=== PATIENT | female | born 1955 | race Caucasian/White ===

== ENCOUNTER 2020-12-13 11:57 | Outpatient (CLI) | payer MEDICARE, OTHER ==
[~2020-12-13] VITALS: Ht 162.6 cm; Wt 70.3 kg
[2020-12-13] MEDS ORDERED: PANT40TA52 PO (12:41)
[2020-12-13] MEDS ORDERED: METH-288 PO (12:41)
[2020-12-13] MEDS ORDERED: DOXY100T2 PO (12:41)
[2020-12-13] MEDS ORDERED: MILN50TA PO (12:41)
[2020-12-13] MEDS ORDERED: MORP15TA PO (12:41)
[2020-12-13] MEDS ORDERED: METH8TAB PO (12:41)
[2020-12-13] MEDS ORDERED: FLUO20CA42 PO (12:41)
[2020-12-13] MEDS ORDERED: PREG75CA PO (12:41)
[2020-12-13] MEDS ORDERED: MORP-68 PO (12:41)
[2020-12-13] MEDS ORDERED: CALC-250 PO (12:41)
[2020-12-13] MEDS ORDERED: LATA7.5D OU (12:41)
== END 2020-12-13 12:52 ==
LOC: EDBD 11:57 → PREOP 11:57
PROVIDERS: ATTEND Orthopaedic Surgery
DX: Z01.818 Encounter for other preprocedural examination (principal)

== ENCOUNTER → 2020-12-13 | Outpatient (CLI) | payer MEDICARE, OTHER ==
[~2020-12-13] MED LIST: CALC-250 PO; DOXY100T2 PO; DOXY100T31 PO; FLUO20CA42 PO; LATA7.5D OU; LORA10TA72 PO; METH-288 PO; METH4TAB11 PO; METH8TAB PO; MILN50TA PO; MORP-68 PO; MORP15TA PO; PANT40TA52 PO; PREG75CA PO
== END ==
LOC: EDBD → ORTHO 08:50
PROVIDERS: ATTEND Orthopaedic Surgery
DX: S42.401A Unspecified fracture of lower end of right humerus, initial encounter for closed fracture (principal); X58.XXXA Exposure to other specified factors, initial encounter
CPT/HCPCS: 29125; G0463

== ENCOUNTER 2020-12-17 06:29 | Inpatient (IN) | payer MEDICARE, OTHER ==
[~2020-12-17] VITALS: Ht 162.6 cm; Wt 74.4 kg
[2020-12-17] VITALS (10 sets, daily range): BP systolic 126–171; BP diastolic 74–130
[~2020-12-17 06:29] MED LIST changes: -DOXY100T31 PO; -LORA10TA72 PO; -METH4TAB11 PO
[2020-12-17] MEDS ORDERED: LACTATED RINGERS 1,000 ML IV PRN (06:45)
[2020-12-17] MEDS ORDERED: ceFAZolin INJECTION 1,000 MG in WATER (STERILE) FOR INJECTION 10 ML IV ONE (06:45)
[2020-12-17] MEDS ORDERED: LIDOCAINE/EPI 1%-1:200,000 (XYLOCAINE) 30 ML VIAL ONE (06:59)
[2020-12-17] MEDS ORDERED: BUPIVACAINE 0.5% 30 ML (SENSORCAINE) VIAL ONE (06:59)
[2020-12-17] MEDS: ceFAZolin INJECTION 1,000 MG in WATER (STERILE) FOR INJECTION 10 ML IV ONE ×2 (07:18→08:12)
[2020-12-17] MEDS: LACTATED RINGERS 1,000 ML IV PRN ×4 (07:19→12:29)
[2020-12-17] MEDS ORDERED: MIDAZOLAM 2 MG/2 ML (VERSED) VIAL ONE (07:29)
[2020-12-17] MEDS ORDERED: fentaNYL INJ 100 MCG/2 ML AMP ONE ×2 (07:29→10:17)
[2020-12-17] MEDS ORDERED: FAMOTIDINE 20MG/2ML IV (PEPCID) ONE (07:43)
[2020-12-17] MEDS ORDERED: proPOfol 200 MG/20 ML (DIPRIVAN) VIAL IV ONE (09:00)
[2020-12-17] MEDS ORDERED: ONDANSETRON 4 MG/2 ML (SDV) Z0FRAN ONE ×2 (09:00→12:15)
[2020-12-17] MEDS ORDERED: LIDOCAINE PF 2% 5 ML (XYLOCAINE) VIAL ONE (09:00)
[2020-12-17] MEDS ORDERED: ROCURONIUM 10 MG/ML 5 ML SYRINGE IV ONE ×2 (09:00→09:01)
[2020-12-17] MEDS ORDERED: SEVOFLURANE (ULTANE) 15 ML INHAL SOLN ONE ×2 (10:59→11:43)
[2020-12-17] MEDS ORDERED: SUGAMMADEX 500 MG/5 ML VIAL (BRIDION) IV ONE (11:23)
[2020-12-17] MEDS ORDERED: HYDROCORTISONE 100 MG/2 ML (Solu-CORTEF) VIAL ONE (11:27)
--- NOTE | 2020-12-17 11:47 | Operative Report - Ortho ---
Operative Report Surgeon (s)/Senior Business Development Analyst (s) Surgeon JACINTO DAILEY MD Senior Business Development Analyst n/a Pre-Operative Diagnosis right distal humerus fx Post-Operative Diagnosis same Operative Report Date of Procedure: Dec 17, 2020 Name of Procedure Performed: Open reduction and internal fixation of right supracondylar humerus fracture without intercondylar extension Description & Findings After obtaining informed consent and marking the patient in the preoperative holding area, the patient was administered IV antibiotics and taken to the operating room. General anesthesia was induced and the patient was placed in prone positioning. Surgical timeout was taken. The right upper extremity was prepped and draped in the usual sterile fashion. A posterior incision was made. A triceps-splitting approach was utilized. Fracture site was irrigated, curretted, and prepared. Initially attempts were made to reduce to a posterolateral anatomic plate however the plate was too bulky distally. A broad reconstruction plate was selected and a slight bend was placed in the plate for the distal portion of the humerus. It was placed in a lateral position. The fracture was reduced initially to the plate on the lateral image of the C-arm and 2 provisional K-wires were placed from posterior to anterior. A nonlocking 3.5 mm screw was placed distally to the fracture site and then another one proximally. 2 locking 3.5 mm screws were then placed distally followed by proximally for a total of 6 screws in the lateral plate. The AP and lateral images on the C-arm demonstrated appropriate reduction. It was decided to add an additional posterior plate for further stability. A reconstruction plate was selected and a very slight bend was placed. A nonlocking 2.7 mm screw was placed proximally followed by another distally. A locking 2.7 mm screw was then placed proximally and distally for a total of 4 screws in the posterior plate. Final C-arm images were obtained and demonstrated maintained reduction and appropriate hardware position. The surgical site was copiously irrigated with saline. Demineralized bone matrix was packed around the fracture site. The triceps was repaired with a running 0 Vicryl suture. Subcutaneous layer was repaired with 3-0 Vicryl suture. Skin was repaired with michael. Arm was dressed with xeroform, 4x4s, ABD, and webril. A posterior splint was placed and secured with JESSICA wrap. Patient tolerated the procedure well and was stable to the recovery room. Anesthesia Type General Estimated Blood Loss 150 cc Specimen(s) collected/removed None JACINTO DAILEY MD Dec 17, 2020 11:47
[2020-12-17] MEDS ORDERED: HYDROmorphone 2 MG/ML VIAL (DILAUDID) ONE (11:56)
[2020-12-17] MEDS ORDERED: ONDANSETRON 4 MG/2 ML (SDV) Z0FRAN IV PRN (12:00)
[2020-12-17] MEDS ORDERED: fentaNYL INJ 100 MCG/2 ML AMP IVP ONE (12:00)
[2020-12-17] MEDS ORDERED: HYDROmorphone 2 MG/ML VIAL (DILAUDID) IV ONE (12:00)
[2020-12-17] MEDS ORDERED: morphine INJ 10 MG/ML 1ML (SYR OR VIAL) IVP ONE (12:00)
[2020-12-17] MEDS ORDERED: METOCLOPRAMIDE INJ 10 MG/2 ML (REGLAN) IV PRN (12:00)
[2020-12-17] MEDS ORDERED: diphenhydrAMINE 50 MG/ML INJ (BENADRYL) IV PRN (12:00)
[2020-12-17] MEDS ORDERED: NALOXONE 0.4 MG/ML 1 ML (NARCAN) VIAL IV PRN ×2 (12:00)
[2020-12-17] MEDS ORDERED: ONDANSETRON 4 MG/2 ML (SDV) Z0FRAN IVP PRN (12:00)
--- NOTE | 2020-12-17 13:07 | Anesthesia-General Post-Op ---
General Patient Condition Mental Status/LOC: Same as Preop Cardiovascular: Satisfactory Nausea/Vomiting: Absent Respiratory: Satisfactory Pain: Controlled Complications: Absent Post Op Complications Complications None Follow Up Care/Instructions Patient Instructions None needed. Anesthesia/Patient Condition Patient Condition Patient is doing well, no complaints, stable vital signs, no apparent adverse anesthesia problems. No complications reported per nursing. OZ DAVENPORT CRNA Dec 17, 2020 13:07
[2020-12-17] MEDS: HYDROmorphone PF INJECTION 10 MG in NS (IVPB) 50 ML IV SCH (13:34)
--- NOTE | 2020-12-17 13:35 | Diagnostic Imaging Report ---
INDICATION: Fluoroscopy for right humerus ORIF. Fluoroscopy was provided in the OR for right humerus ORIF. 34 seconds of fluoroscopic time was utilized. 2 images demonstrate plates and screws transfixing distal humerus fracture. IMPRESSION: Fluoroscopy during right humerus ORIF. Dictated by: Dictated on workstation # [id number]
[2020-12-17] MEDS: NS IV 1000 ML 1,000 ML IV SCH (13:45)
[2020-12-17] MEDS ORDERED: METH4TAB11 PO (14:10)
[2020-12-17] MEDS ORDERED: LORA10TA72 PO (14:10)
[2020-12-17] MEDS ORDERED: DOXY100T31 PO (14:10)
--- NOTE | 2020-12-17 15:45 | Physical Therapy Evaluation ---
PT Evaluation-General Medical Diagnosis Admission Date Medical Diagnosis: right distal humerus fx Onset Date: Dec 16, 2020 Therapy Diagnosis Therapy Diagnosis: Gait deficit, strength deficit Precautions Precautions/Isolations: Fall Prevention, Standard Precautions Weight Bear Status Right Lower Extremity: Right Full Weight Bearing Left Lower Extremity: Left Full Weight Bearing NWB R UE Referral Physician: Dr. Farr Reason for Referral: Evaluation/Treatment Medical History Additional Medical History MS Social History Home: Single Level Current Living Status: son Entry Into Home: Ramp Prior Prior Level of Function SCALE: Activities may be completed with or without assistive devices. 0-Rzajvxqwgm-jbprvus completes the activity by him/herself with no assistance from a helper. 5-Set-up or Clean-up Assistance-helper sets up or cleans up; patient completes activity. [place] assists only prior to or following the activity. 4-Supervision or Touching Assistance-helper provides verbal cues and/or touching/steadying and/or contact guard assistance as patient completes activity. Assistance may be provided throughout the activity or intermittently. 3-Partial/Moderate Assistance-helper does LESS THAN HALF the effort. [place] lifts, holds or supports trunk or limbs, but provides less than half the effort. 2-Substantial/Maximal Assistance-helper does MORE THAN HALF the effort. [place] lifts or holds trunk or limbs and provides more than half the effort. 6-Dpquyjfco-qzxnno does ALL the effort. Patient does none of the effort to complete the activity. Or, the assistance of 2 or more helpers is required for the patient to complete the activity. If activity was not attempted, code reason: 7-Patient Refused. 9-Not Applicable-not attempted and the patient did not perform the activity before the current illness, exacerbation or injury. 10-Not Attempted due to Environmental Limitations-(lack of equipment, weather restraints, etc.). 88-Not Attempted due to Medical Conditions or Safety Concerns. Bed Mobility: 6 Transfers (B,C,W/C): 6 Gait: 9 Stairs: 9 Indoor Mobility (Ambulation): Dependent Stairs: Dependent Prior Devices Use: Manual wheelchair, Motorized wheelchair Patient has MS and other than standing to transfer, is essentially w/c bound PT Evaluation-Current Subjective Patient reports pain in right elbow is currently 10/10, nurse in the room administering medications. Patient reports she has MS and has not ambulated in over a year. She is able to perform all ADLs with mod I at home, and she is able to stand to transfer to chair, w/c Objective Patient Orientation: Person, Place, Time, Situation Attachments: IV ROM/Strength ROM Upper Extremities Right UE limited due to recent surgery ROM Lower Extremities WFLs with PROM Strength Lower Extremities Right LE 3+/5 in all hip, knee and ankle planes; Left LE 3-/5 in all hip, knee, and ankle planes. Neuromuscular (Tone, Coordination, Reflexes) Tone decreased in BLEs. Coordination poor in BLEs. Sensory Sensation Right Lower Extremit: Intact Sensation Left Lower Extremity: Impaired Sensation Lower Extremities Left foot no sensation to light touch. Transfers Roll Left to Right (QC): 2 Sit to Lying (QC): 2 Lying to Sitting/Side of Bed(Q: 2 Sit to Stand (QC): 3 Chair/Dix-vl-Pkvfr Xfer(QC): 3 Gait Mode of Locomotion: Wheelchair Anticipated Mode of Locomotion: Wheelchair Wheelchair Training Does the Pt Use a Wheelchair?: Yes Distance: N/A due to surgery Type of Wheelchair: Manual Balance Sitting Static: Fair Sitting Dynamic: Fair Standing Static: Poor Standing Dynamic: Poor Assessment/Needs Patient lying supine in bed upon PT arrival, agreeable to treatment. Patient performs all bed mobility with max A and transfers with mod A. Patient is able to transfer to the chair with use of left UE only, with mod A and verbal cues. She demonstrates difficulty controlling descent into the chair. Patient in chair post treatment with all needs met, nursing notified, call light in reach, daughter and nurse in the room. Rehab Potential: Fair Equipment Needs None at this time as patient already has all needed assitive devices at home. PT Short Term Goals Short Term Goals Time Frame: Dec 24, 2020 Roll Left & Right: 4 Sit to lyin Lying to sitting on side of be: 4 Sit to stand: 4 Chair/hgx-yy-qhjxi transfer: 4 PT Perioperative Tech Goals Chcf Goals PT Chcf Goals Time Frame: Dec 31, 2020 Roll Left & Right (QC): 5 Sit to Lying (QC): 5 Lying-Sitting on Side/Bed(QC): 5 Sit to Stand (QC): 5 Chair/Wwb-ik-Xhtjy Xfer(QC): 5 Toilet Transfer (QC): 5 PT Plan Problem List Problem List: Activity Tolerance, Functional Strength, Safety, Balance, Gait, Transfer, Bed Mobility, ROM Treatment/Plan Treatment Plan: Continue Plan of Care Treatment Plan: Bed Mobility, Education, Functional Activity Doris, Functional Strength, Safety, Therapeutic Exercise, Transfers Treatment Duration: Jan 30, 2021 Frequency: 6 times per week Estimated Hrs Per Day: .25 hour per day Safety Risks/Education Patient Education: Transfer Techniques, Reviewed Precautions Teaching Recipient: Patient, Family Teaching Methods: Demonstration, Discussion Response to Teaching: Verbalize Understanding, Return Demonstration Time/GCodes Time In: 1515 Time Out: 1545 Total Billed Treatment Time: 30 Total Billed Treatment Visit, OVIDIO Abraham JOHN A PT Dec 17, 2020 15:45
[2020-12-17] MEDS: PREGABALIN 75 MG (LYRICA) CAP PO SCH (20:29)
[2020-12-17] MEDS: morphine ER 15 MG (MS CONTIN) TAB PO SCH (20:29)
[2020-12-17] MEDS: DOCUSATE SODIUM 100 MG (COLACE) CAP PO SCH (20:29)
[2020-12-17] MEDS: LATANOPROST 0.005% (XALATAN) OPHTH SOLN 2.5 ML OU SCH (20:30)
[2020-12-17] MEDS: DOXYCYCLINE 100 MG (VIBRAMYCIN) TABLET PO SCH (20:30)
[2020-12-17] MEDS ORDERED: MILNACIPRAN HCL 50 MG PO SCH (21:00)
[2020-12-17] MEDS ORDERED: NON-FORMULARY MEDICATION 1 EA EA (Latanoprost/Pf (Latanoprost 0.005% Eye Drop) 1 DROP) OU SCH (21:00)
[2020-12-18 00:15] VITALS: BP 108/59
[2020-12-18 03:30] VITALS: BP 129/61
[2020-12-18 08:00] VITALS: BP 129/71
[2020-12-18] MEDS: VITAMIN D3 125 MCG (5,000 UNITS) CAPSULE PO SCH (08:18)
[2020-12-18] MEDS: DOCUSATE SODIUM 100 MG (COLACE) CAP PO SCH ×2 (08:19→20:21)
[2020-12-18] MEDS: SENNA W/DOCUSATE (SENOKOT S) TABLET PO SCH (08:19)
[2020-12-18] MEDS: FLUoxetine HCL 20 MG (PROzac) CAP PO SCH (08:19)
[2020-12-18] MEDS: morphine ER 15 MG (MS CONTIN) TAB PO SCH ×2 (08:19→20:21)
[2020-12-18] MEDS: METHYLPHENIDATE 5 MG (RITALIN) TAB PO SCH (08:19)
[2020-12-18] MEDS: PREGABALIN 75 MG (LYRICA) CAP PO SCH ×2 (08:19→20:21)
[2020-12-18] MEDS: PANTOPRAZOLE 40 MG (PROTONIX) TAB PO SCH (08:19)
--- NOTE | 2020-12-18 08:25 | Progress Note - Ortho ---
Progress Note Subjective Date of Exam 12/18/20 Chief Complaint Right Arm Pain HPI/Events since last exam POD #1 ORIF of R Distal Humerus Fracture Has ongoing difficulty with pain control. Has been out of bed to chair. Using sling. Review of Systems n/a Allergies: Coded Allergies: No Known Drug Allergies (Unverified , 12/13/20) Home Meds Reported Medications Loratadine (Claritin) 10 Mg Tab.rapdis, 10 MG PO DAILY PRN for ALLERGIES, TAB 12/17/20 Methylprednisolone (Methylprednisolone Dose Pack) 4 Mg Tablet, 6 MG PO HS, TAB TAKES 1 (4MG) TABLETS 12/17/20 Doxycycline Monohydrate (Doxycycline Monohydrate) 100 Mg Tablet, 100 MG PO HS, TAB 12/17/20 Cholecalciferol (Vitamin D3) (Vitamin D3) 125 Mcg Tablet, 125 MCG PO DAILY, TAB 12/13/20 Milnacipran HCl (Savella) 50 Mg Tablet, 50 MG PO HS, TAB 12/13/20 Fluoxetine HCl (Prozac) 20 Mg Capsule, 20 MG PO DAILY, CAP 12/13/20 Pantoprazole Sodium (Pantoprazole Sodium) 40 Mg Tablet.dr, 40 MG PO DAILY, TAB 12/13/20 Morphine Sulfate (Morphine Sulfate ER) 15 Mg Tablet.er, 15 MG PO BID, TAB 12/13/20 Morphine Sulfate (Morphine Sulfate IR Tablet) 15 Mg Tablet, 15 MG PO Q4H PRN for PAIN-MODERATE (5-7), TAB 12/13/20 Methylphenidate HCl (Methylphenidate HCl) 10 Mg Tablet, 5 MG PO DAILY, TAB TAKES (10MG) TABLET 12/13/20 Pregabalin (Lyrica) 75 Mg Capsule, 75 MG PO BID, CAP 12/13/20 Latanoprost/Pf (Latanoprost 0.005% Eye Drop) 7.5 Ml Drops, 1 DROP OU HS, DROPS 12/13/20 Discontinued Reported Medications Methylprednisolone (Medrol) Unknown Strength Tablet, 6 MG PO HS, TAB 12/13/20 Doxycycline Hyclate (Doxycycline Hyclate) 100 Mg Tablet, 100 MG PO HS, TAB 12/13/20 Objective Exam Right Arm: Splint intact, extends thumb and wrist, abducts fingers, sensation slightly diminished throughout all fingers Vital Signs Vital Signs Date Time Temp Pulse Resp B/P (MAP) Pulse Ox O2 Delivery O2 Flow Rate FiO2 12/18/20 06:44 93 Nasal Cannula 2.00 12/18/20 03:51 92 Nasal Cannula 2.00 12/18/20 03:30 36.5 92 14 129/61 (83) 93 Room Air 12/18/20 00:15 36.8 96 18 108/59 (75) 97 Room Air 12/17/20 22:45 85 Room Air 12/17/20 20:35 36.1 91 18 133/79 (97) 93 Room Air 12/17/20 20:29 92 Room Air 12/17/20 19:00 92 Room Air 12/17/20 16:59 92 Room Air 12/17/20 16:25 92 Room Air 12/17/20 13:26 97 24 142/83 92 Room Air 12/17/20 12:30 36.9 10 165/98 (120) 93 Room Air 12/17/20 12:30 Room Air 12/17/20 12:20 23 171/105 (127) 96 12/17/20 12:15 Room Air 12/17/20 12:10 11 167/103 (124) 98 OxyMask 2 12/17/20 12:00 11 168/130 (143) 96 OxyMask 2 12/17/20 12:00 OxyMask 2 12/17/20 11:50 14 166/100 (122) 96 OxyMask 5 12/17/20 11:45 OxyMask 10 12/17/20 11:40 15 160/83 (108) 99 OxyMask 10 12/17/20 11:29 OxyMask 10 12/17/20 11:29 36.3 13 140/78 (98) 97 OxyMask 10 I & O 12/18/20 07:00 Intake Total 1810 ml Output Total 200 ml Balance 1610 ml Lab Results Microbiology 12/17/20 MRSA Screen - Final, Complete MRSA not isolated Assessment and Plan Assessment s/p ORIF of R Distal Humerus Fx Problem List z09 Post surgical Plan Continue to work on pain control and mobility. When able to mobilize safely, consider discharge home. Final Diagonsis z09 Postop Level of the visit: Level 3 (Postop global) JACINTO DAILEY MD Dec 18, 2020 08:25
[2020-12-18] MEDS ORDERED: METHYLPHENIDATE HCL 5 MG PO SCH (09:00)
[2020-12-18] MEDS: morphine IMMEDIATE RELEASE 15 MG TABLET PO PRN ×3 (10:28→21:49)
[2020-12-18 11:00] VITALS: BP 107/73
--- NOTE | 2020-12-18 12:12 | Physical Therapy Daily Note ---
PT Daily Note-Current Subjective Patient agrees to up to recliner. Mental Status Patient Orientation: Normal For Age Attachments: Oxygen, IV Transfers SCALE: Activities may be completed with or without assistive devices. 6-Qmkvlhsmdi-ytyephe completes the activity by him/herself with no assistance from a helper. 5-Set-up or Clean-up Assistance-helper sets up or cleans up; patient completes activity. [place] assists only prior to or following the activity. 4-Supervision or Touching Assistance-helper provides verbal cues and/or touching/steadying and/or contact guard assistance as patient completes activity. Assistance may be provided throughout the activity or intermittently. 3-Partial/Moderate Assistance-helper does LESS THAN HALF the effort. [place] l ifts, holds or supports trunk or limbs, but provides less than half the effort. 2-Substantial/Maximal Assistance-helper does MORE THAN HALF the effort. [place] lifts or holds trunk or limbs and provides more than half the effort. 8-Tfelwvhud-rgkark does ALL the effort. Patient does none of the effort to complete the activity. Or, the assistance of 2 or more helpers is required for t he patient to complete the activity. If activity was not attempted, code reason: 7-Patient Refused. 9-Not Applicable-not attempted and the patient did not perform the activity before the current illness, exacerbation or injury. 10-Not Attempted due to Environmental Limitations-(lack of equipment, weather restraints, etc.). 88-Not Attempted due to Medical Conditions or Safety Concerns. Sit to Stand (QC): 2 (sit to stand x 3 sets with SPT to left to recliner from commode) Weight Bearing Right Lower Extremity: Right Full Weight Bearing Left Lower Extremity: Left Full Weight Bearing NWB R UE Assessment Patient up in recliner with needs met. Plan dismissal to home with caregivers this week. PT Short Term Goals Short Term Goals Time Frame: Dec 24, 2020 Roll Left & Right: 4 Sit to lyin Lying to sitting on side of be: 4 Sit to stand: 4 Chair/thc-ku-dbtjz transfer: 4 PT Gamma Facilities Operator Goals Gamma Facilities Operator Goals PT Halfway Goals Time Frame: Dec 31, 2020 Roll Left & Right (QC): 5 Sit to Lying (QC): 5 Lying-Sitting on Side/Bed(QC): 5 Sit to Stand (QC): 5 Chair/Udr-th-Ewbve Xfer(QC): 5 Toilet Transfer (QC): 5 PT Plan Treatment/Plan Treatment Plan: Continue Plan of Care Treatment Plan: Bed Mobility, Education, Functional Activity Doris, Functional Strength, Safety, Therapeutic Exercise, Transfers Treatment Duration: Jan 30, 2021 Frequency: 6 times per week Estimated Hrs Per Day: .25 hour per day Time/GCodes Time In: 1131 Time Out: 1140 Total Billed Treatment Time: 9 Total Billed Treatment 1 visit FA 9 min BRIAN LUCERO PT Dec 18, 2020 12:12
[2020-12-18 16:00] VITALS: BP 124/60
[2020-12-18] MEDS: NS IV 1000 ML 1,000 ML IV SCH (16:52)
[2020-12-18] MEDS: HYDROmorphone PF INJECTION 10 MG in NS (IVPB) 50 ML IV SCH (20:05)
[2020-12-18 20:09] VITALS: BP 131/60
[2020-12-18] MEDS: DOXYCYCLINE 100 MG (VIBRAMYCIN) TABLET PO SCH (20:21)
[2020-12-18] MEDS: LATANOPROST 0.005% (XALATAN) OPHTH SOLN 2.5 ML OU SCH (20:21)
[2020-12-18] MEDS ORDERED: METHYLPREDNISOLONE PO SCH (21:00)
[2020-12-19 00:17] VITALS: BP 118/72
[2020-12-19] MEDS: morphine IMMEDIATE RELEASE 15 MG TABLET PO PRN ×3 (02:01→12:14)
[2020-12-19 04:40] VITALS: BP 105/68
[2020-12-19 08:00] VITALS: BP 134/76
[2020-12-19] MEDS: DOCUSATE SODIUM 100 MG (COLACE) CAP PO SCH (09:31)
[2020-12-19] MEDS: SENNA W/DOCUSATE (SENOKOT S) TABLET PO SCH (09:31)
[2020-12-19] MEDS: PANTOPRAZOLE 40 MG (PROTONIX) TAB PO SCH (09:31)
[2020-12-19] MEDS: METHYLPHENIDATE 5 MG (RITALIN) TAB PO SCH (09:31)
[2020-12-19] MEDS: FLUoxetine HCL 20 MG (PROzac) CAP PO SCH (09:32)
[2020-12-19] MEDS: VITAMIN D3 125 MCG (5,000 UNITS) CAPSULE PO SCH (09:32)
[2020-12-19] MEDS: PREGABALIN 75 MG (LYRICA) CAP PO SCH (09:32)
[2020-12-19] MEDS: morphine ER 15 MG (MS CONTIN) TAB PO SCH (09:32)
--- NOTE | 2020-12-19 11:14 | Physical Therapy Daily Note ---
PT Daily Note-Current Subjective Pt in bed upon arrival and agrees to tx. Pt states pain in B UE but doesn't rate out of 10. Pain Location Body Site: Shoulder Mental Status Patient Orientation: Person, Place, Situation Transfers SCALE: Activities may be completed with or without assistive devices. 0-Timkshqkxq-duombgq completes the activity by him/herself with no assistance from a helper. 5-Set-up or Clean-up Assistance-helper sets up or cleans up; patient completes activity. [place] assists only prior to or following the activity. 4-Supervision or Touching Assistance-helper provides verbal cues and/or touc dai/steadying and/or contact guard assistance as patient completes activity. Assistance may be provided throughout the activity or intermittently. 3-Partial/Moderate Assistance-helper does LESS THAN HALF the effort. [place] lifts, holds or supports trunk or limbs, but provides less than half the effort. 2-Substantial/Maximal Assistance-helper does MORE THAN HALF the effort. [place] lifts or holds trunk or limbs and provides more than half the effort. 6-Kzxgntawe-fgyywb does ALL the effort. Patient does none of the effort to complete the activity. Or, the assistance of 2 or more helpers is required for the patient to complete the activity. If activity was not attempted, code reason: 7-Patient Refused. 9-Not Applicable-not attempted and the patient did not perform the activity before the current illness, exacerbation or injury. 10-Not Attempted due to Environmental Limitations-(lack of equipment, weather restraints, etc.). 88-Not Attempted due to Medical Conditions or Safety Concerns. Sit to Lying (QC): 3 Lying to Sitting/Side of Bed(Q: 3 Sit to Stand (QC): 3 Toilet Transfer (QC): 3 Weight Bearing Right Lower Extremity: Right Full Weight Bearing Left Lower Extremity: Left Full Weight Bearing NWB R UE Treatments Pt completes supine to sit, able to bring LE close to EOB but requires STUDENT DEVELOPMENT DEAN A to get feet on floor. Pt able to turn torso and bring slightly upright, STUDENT DEVELOPMENT DEAN A pt become upright. Pt sit to stand Marcos and SPT to BSC. Pt sit to stand Marcos and requires A for cleaning. Pt SPT back to bed, sit to supine Marcos, w/ STUDENT DEVELOPMENT DEAN bringing LE into bed. Pt able to scoot up into bed using R LE to push and L UE to pull up w/ STUDENT DEVELOPMENT DEAN using draw sheet. Pt stays in bed w/ all needs met, call light in hand. Assessment Current Status: Good Progress, Fair Progress Pt limited by pain and weakness. PT Short Term Goals Short Term Goals Time Frame: Dec 24, 2020 Roll Left & Right: 4 Sit to lyin Lying to sitting on side of be: 4 Sit to stand: 4 Chair/ion-wl-mnkfd transfer: 4 PT Jail Goals Jail Goals PT Jail Goals Time Frame: Dec 31, 2020 Roll Left & Right (QC): 5 Sit to Lying (QC): 5 Lying-Sitting on Side/Bed(QC): 5 Sit to Stand (QC): 5 Chair/Mvu-dj-Vqeji Xfer(QC): 5 Toilet Transfer (QC): 5 PT Plan Treatment/Plan Treatment Plan: Continue Plan of Care Treatment Plan: Bed Mobility, Education, Functional Activity Doris, Functional Strength, Safety, Therapeutic Exercise, Transfers Treatment Duration: Jan 30, 2021 Frequency: 6 times per week Estimated Hrs Per Day: .25 hour per day Time/GCodes Time In: 945 Time Out: 1003 Total Billed Treatment Time: 18 Total Billed Treatment 1OVIDIO SYDNEY STUDENT DEVELOPMENT DEAN Dec 19, 2020 11:14
[2020-12-19 12:00] VITALS: BP 134/85
--- NOTE | 2020-12-19 13:18 | Discharge Summary ---
Discharge Summary Hospital Course Problems/Dx: (1) Closed fracture of right distal humerus Status: Acute Qualifiers: Qualified Codes: S42.491A - Other displaced fracture of lower end of right humerus, initial encounter for closed fracture Hospital Course Date of Admission: Dec 18, 2020 at 15:55 Admission Diagnosis : Family Physician/Provider: Date of Discharge: 12/19/20 Discharge Diagnosis: Right Distal Humerus Fracture Hospital Course: Patient initially underwent ORIF of right distal humerus fracture on 12/17/20 and was admitted to observation status secondary to concerns regarding pain control and ability to have care or care for herself at home. She tolerated the procedure well. On POD #1, she was having difficulty with mobilizing and pain control had not been achieved. She was transferred to inpatient status. Continued to restore her typical home medication regimen. On the morning of POD #2, discontinued her RADIOLOGICAL DEFENSE OFFICER. Her pain remained improved and controlled on her typical home medication regimen. She was ready for discharge home. Labs and Pending Lab Test: Microbiology 12/17/20 MRSA Screen - Final, Complete MRSA not isolated Home Meds Active Reported Claritin (Loratadine) 10 Mg Tab.rapdis 10 Mg PO DAILY PRN Methylprednisolone Dose Pack (Methylprednisolone) 4 Mg Tablet 6 Mg PO HS TAKES 1 (4MG) TABLETS Doxycycline Monohydrate 100 Mg Tablet 100 Mg PO HS Vitamin D3 (Cholecalciferol (Vitamin D3)) 125 Mcg Tablet 125 Mcg PO DAILY Savella (Milnacipran HCl) 50 Mg Tablet 50 Mg PO HS Prozac (Fluoxetine HCl) 20 Mg Capsule 20 Mg PO DAILY Pantoprazole Sodium 40 Mg Tablet.dr 40 Mg PO DAILY Morphine Sulfate ER (Morphine Sulfate) 15 Mg Tablet.er 15 Mg PO BID Morphine Sulfate IR Tablet (Morphine Sulfate) 15 Mg Tablet 15 Mg PO Q4H PRN Methylphenidate HCl 10 Mg Tablet 5 Mg PO DAILY TAKES (10MG) TABLET Lyrica (Pregabalin) 75 Mg Capsule 75 Mg PO BID Latanoprost 0.005% Eye Drop (Latanoprost/Pf) 7.5 Ml Drops 1 Drop OU HS Assessment/Pt Instructions s/p ORIF of Right Distal Humerus Fx Remain NWB of R arm. Sling to R arm. Maintain splint until follow up appointment. Discharge Instructions Discharge Diet: No Restrictions Activity as Tolerated: No Discharge Physical Examination Vital Signs Vital Signs Date Time Temp Pulse Resp B/P (MAP) Pulse Ox O2 Delivery O2 Flow Rate FiO2 12/19/20 12:00 36.0 89 20 134/85 (101) 97 Room Air 12/19/20 07:51 2.00 Extremity: Non Tender (Right arm: Splint intact, extends thumb and wrist, cap refill normal, sensation grossly intact to light touch) Allergies: Coded Allergies: No Known Drug Allergies (Unverified , 12/13/20) Discharge Summary Date of Admission Dec 18, 2020 at 15:55 Date of Discharge Dec 19, 2020 Admission Diagnosis Right Distal Humerus Fx Consults/Procedures Procedures ORIF of R Distal Humerus Fracture Discharge Diagnosis Right Distal Humerus Fx (1) Closed fracture of right distal humerus Status: Acute Qualifiers: Qualified Codes: S42.491A - Other displaced fracture of lower end of right humerus, initial encounter for closed fracture JACINTO DAILEY MD Dec 19, 2020 13:04
[2020-12-19] MEDS ORDERED: predniSONE 5 MG TAB PO SCH (21:00)
== END 2020-12-19 15:35 | disposition home or self-care (01) | DRG 494 ==
LOC: EDBD → SDC 06:29 → 4TH 12:55 → SDC 12-18 15:55 → 4TH 12-18 15:55
PROVIDERS: ADMIT Orthopaedic Surgery; ATTEND Orthopaedic Surgery
PROC: 0PSF04Z Reposition Right Humeral Shaft with Internal Fixation Device, Open Approach (ICD-10-PCS; principal; 2020-12-17 07:47)
DX: S42.411A Displaced simple supracondylar fracture without intercondylar fracture of right humerus, initial encounter for closed fracture (principal); G35 Multiple sclerosis; K21.9 Gastro-esophageal reflux disease without esophagitis; M17.12 Unilateral primary osteoarthritis, left knee; M19.042 Primary osteoarthritis, left hand; M19.041 Primary osteoarthritis, right hand; Z87.01 Personal history of pneumonia (recurrent); Z87.820 Personal history of traumatic brain injury; W06.XXXA Fall from bed, initial encounter
CPT/HCPCS: 76000; 87081; 94664; 94760; G0378

== ENCOUNTER → 2020-12-25 | Outpatient (CLI) | payer MEDICARE, OTHER ==
[~2020-12-25] MED LIST changes: +DOXY100T31 PO; +LORA10TA72 PO; +METH4TAB11 PO
== END ==
LOC: ORTHO 08:25
PROVIDERS: ATTEND Orthopaedic Surgery
DX: Z47.89 Encounter for other orthopedic aftercare (principal); Z98.890 Other specified postprocedural states

== ENCOUNTER → 2021-01-01 | Outpatient (CLI) | payer MEDICARE, OTHER | LOC: ORTHO 08:21 | PROVIDERS: ATTEND Orthopaedic Surgery | DX: S42.401D Unspecified fracture of lower end of right humerus, subsequent encounter for fracture with routine healing (principal); X58.XXXD Exposure to other specified factors, subsequent encounter ==

== ENCOUNTER → 2021-01-15 | Outpatient (CLI) | payer MEDICARE, OTHER ==
--- NOTE | 2021-01-15 08:57 | Diagnostic Imaging Report ---
CLINICAL INDICATION: Followup postop changes. EXAM: X-ray of the right humerus, 3 views. COMPARISON: None. FINDINGS: There are 2 side sideplates with screws internally fixing the distal humeral diaphyseal fracture which is in near-anatomic alignment. There is callus formation seen in the fracture region. There is no hardware complications. 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 IMPRESSION: There is open reduction internal fixation of the distal humeral diaphyseal fracture with callus formation seen in the fracture region. Dictated by: Dictated on workstation # [id number]
== END ==
LOC: ORTHO 08:08
PROVIDERS: ATTEND Orthopaedic Surgery
DX: Z47.89 Encounter for other orthopedic aftercare (principal); S42.491D Other displaced fracture of lower end of right humerus, subsequent encounter for fracture with routine healing; X58.XXXD Exposure to other specified factors, subsequent encounter
CPT/HCPCS: 73060

== ENCOUNTER → 2021-02-12 | Outpatient (CLI) | payer MEDICARE, OTHER ==
--- NOTE | 2021-02-12 09:56 | Diagnostic Imaging Report ---
Right humerus at 8:30h. INDICATION: Follow-up fracture AP and lateral views were obtained. As noted on the prior exam of 01/15/2021 there are 2 orthopedic plate and screw fixation devices securing a comminuted fracture of the distal humerus. The orthopedic hardware appears to be stable in position when compared to the prior exam. The main fracture fragments also seen unchanged although the fracture lines are still clearly evident. However there has been an increase in healing callus formation about the fracture site since the prior exam. The mild deformity of the proximal radius and ulna seen previously is again evident and no different. The soft tissues are unremarkable. IMPRESSION: 1. There are postoperative and posttraumatic changes involving the distal humerus as described above. The orthopedic hardware seems to be in good position and there has been healing callus formation developed since the prior study. However the fracture lines are still clearly evident. 2. No new abnormality has developed otherwise. Dictated by: Dictated on workstation # [id number]
== END ==
LOC: ORTHO 08:10
PROVIDERS: ATTEND Orthopaedic Surgery
DX: S42.401D Unspecified fracture of lower end of right humerus, subsequent encounter for fracture with routine healing (principal); X58.XXXD Exposure to other specified factors, subsequent encounter
CPT/HCPCS: 73060